=== PATIENT | male | born 1970 | race Caucasian/White ===

== ENCOUNTER 2023-04-27 07:49 | Inpatient (IN) ==
--- NOTE | 2023-03-22 14:48 | PAT Medication Instructions ---
Medication Instructions Date of Service March 22, 2023 Home Medications aspirin-acetaminophen (buffered) 250 mg-250 mg tablet 1 tab PO Q8H PRN lisinopril 10 mg tablet 10 mg PO QAM meloxicam 15 mg tablet 15 mg PO QAM rosuvastatin 10 mg tablet 10 mg PO QAM sumatriptan succinate 50 mg tablet (Imitrex) 50 mg PO UD PRN Continue as directed sumatriptan succinate 50 mg tablet (Imitrex) 50 mg PO UD PRN(if needed) ASK your surgeon for instructions meloxicam 15 mg tablet 15 mg PO QAM ASK your prescriber and surgeon aspirin-acetaminophen (buffered) 250 mg-250 mg tablet 1 tab PO Q8H PRN DO NOT take the morning of surgery lisinopril 10 mg tablet 10 mg PO QAM Take morning of surgery With a small sip of water, OTHERWISE NOTHING TO EAT OR DRINK AFTER MIDNIGHT: rosuvastatin 10 mg tablet 10 mg PO QAM Other Notes If you have any questions please call us at [phone] or [phone] or [phone] or [phone]
--- NOTE | 2023-03-30 12:10 | Anesthesiology Consultation ---
Date of Service March 30, 2023 Assessment & Plan (1) Encounter for pre-operative examination: - will request cardiology office re-fax EKG as report is not visible on current scan for potentially clearer copy. - Case discussed in detail with Dr. Raymond who advised patient is acceptable to proceed without additional evaluation or testing. - cardiology office visit 02/18/23: "...hypertension and palpitations...doing well since last visit from a cardiovascular perspective...no problems of chest pain chest heaviness...labile T waves and has previously shown bouts of inverted T waves followed by EKGs that are completely normal. I did offer to update stress testing but he does not feel he needs it at this time. Today's electrocardiogram did not show any of the T wave changes...palpitations have been infrequent and do not require any specific therapy at this time. Severe low back pain which is being treated with pain management and may actually need surgical intervention..." Chart Review Chart Review: Pending: Refer to Additional Notes / Consult section and Patient seen in Pre Admission Testing Teaching & Discussion Pre-Anesthesia Teaching/Discussion Notes: Instructed NPO after midnight before surgery, except medications with 15 cc of water. Medication instructions provided according to the PAT guidelines. History Surgery Operation Date: 04/27/23 07:45 Proposed Procedures p L4-S1 Decompression and Fusion, Possible L3-L4, Spinal Cord Monitoring - Elia Lewis DO Height/Weight Height: 5 ft 6 in Weight: 84.9 kg Allergies Allergy/AdvReac Type Severity Reaction Status Date / Time No Known Allergies Allergy Verified 03/22/23 08:20 Medications Home Medications Medication Instructions Recorded Confirmed Last Taken aspirin-acetaminophen (buffered) 1 tab PO Q8H PRN Pain 03/22/23 03/22/23 Unknown 250 mg-250 mg tablet lisinopril 10 mg tablet 10 mg PO QAM 03/22/23 03/22/23 Unknown meloxicam 15 mg tablet 15 mg PO QAM 03/22/23 03/22/23 Unknown rosuvastatin 10 mg tablet 10 mg PO QAM 03/22/23 03/22/23 Unknown sumatriptan succinate 50 mg tablet 50 mg PO UD PRN migraines 03/22/23 03/22/23 Unknown (Imitrex) Past Medical History Medical History Degenerative disc disease Epidermolysis bullosa mild form per patient, 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 Exercise / Class Metabolic Activity 1 > 8 Run/Swim/Ski/Tennis (denies chest discomfort or shortness of breath with 1 FOS; does 20+ mile bike rides) Past Family History Family History Other No family history of adverse response to anesthesia Past Surgical History Surgical History History of colonoscopy Hx of vasectomy S/P ACL repair right [place] teeth removed Past Anesthesia History No Hx of Anesthesia Complications and No Family Hx of Anesthesia Complications History of PONV No Hx of PONV and No Hx of Motion Sickness Social History Smoking Status: Never smoker Hx Alcohol Use: No substance use type: does not use Review of Systems Infrequent positional (on back) snoring, denies witnessed apneas. Patient denies chest pain, shortness of breath, dyspnea on exertion, fever, chills, cough, wheezing, or palpitations. Physical Exam Vital Signs Vitals BP 125/86 P 95 TEMP 98.1 SP02 95% on RA RESP 17 Physical Patient resting comfortably in chair in no acute distress, alert and oriented, responding appropriately throughout visit Full cervical extension range of motion without pain TMD 3.5 finger breadths Mallampati Score 2 Dentition: intact, denies chipped or loose teeth, caps/crowns, implants or bridges Lungs: normal respiratory effort. Good air movement, clear throughout to auscultation, no adventitious breath sounds Cardiac: regular rate and rhythm, no murmurs noted Carotid arteries: negative bruit bilat Lab Results Anesthesia Preop Results Results Anesthesia Widget: WBC 8.32 K/ul (4.8-10.8) 03/30/23 Hgb 16.6 g/dl (14.0-18.0) 03/30/23 Hct 48.4 % (42.0-52.0) 03/30/23 Plt 324 K/uL (130-400) 03/30/23 Na 139 mmol/L (136-145) 03/30/23 K 4.7 mmol/L (3.5-5.1) 03/30/23 Cl 104 mmol/L (98-107) 03/30/23 CO2 32 mmol/L (21-32) 03/30/23 BUN 18 mg/dl (6-23) 03/30/23 Creat 0.90 mg/dl (0.6-1.4) 03/30/23 Glucose Level 87 mg/dl (70-99(Fasting)) 03/30/23 PT 11.3 Seconds (9.0-12.0) 03/30/23 PTT 27.6 Seconds (21.0-31.0) 03/30/23 INR 1.0 (0.9-1.1) 03/30/23 Urine Color Yellow 03/30/23 Urine Appearance Clear (Clear) 03/30/23 Urine pH 5.5 (4.5-7.5) 03/30/23 Urine Specific [place] 1.018 (1.000-1.030) 03/30/23 Urine Protein Negative (Negative) 03/30/23 Urine Glucose (UA) Negative (Negative) 03/30/23 Urine Ketones Negative (Negative) 03/30/23 Urine Blood 1+ (Negative) H 03/30/23 Urine Nitrite Negative (Negative) 03/30/23 Urine Bilirubin Negative (Negative) 03/30/23 Urine Urobilinogen Negative (Negative) 03/30/23 Urine Leukocyte Esterase Negative (Negative) 03/30/23 Urine WBC (Auto) 0 /hpf (0-5) 03/30/23 Urine RBC (Auto) 0-4 /hpf (0-4) 03/30/23 Urine Hyaline Casts (Auto) 0 /lpf (0-5) 03/30/23 Urine Epithelial Cells (Auto) 0-5 /lpf (0-5) 03/30/23 Urine Bacteria (Auto) Negative (Negative) 03/30/23 Blood Type A Positive 03/30/23 Antibody Screen NEGATIVE 03/30/23 Testing Electrocardiogram Date: 02/18/23 Chest X-Ray Date: 03/30/23 No acute process Stress Test Date: 08/14/19 Provider notation: No sx, no isch, no echo changes
[~2023-04-27 07:49] MED LIST: ACETAMINOPHEN 500 MG TAB PO SCH; CeleBREX 200 MG CAP PO SCH; FAMOTIDINE/PF 20 MG/2 ML VIAL IV ONE; GABAPENTIN 900 MG DOSE PO SCH; LR 15ML/HR IV SCH; LR 60ML/HR IV SCH; ROCURONIUM BROMIDE 10 MG/ML 5 ML VIAL IV ONE; ceFAZolin 2000MG 2,000 MG/15 ML SYR IV SCH
[2023-04-27] MEDS ORDERED: fentaNYL citrate PF 100 MCG/2 ML VIAL ONE (08:38)
[2023-04-27] MEDS ORDERED: MIDAZOLAM HCL 1 MG/ML 2ML VIAL ONE (08:38)
[2023-04-27] MEDS ORDERED: LIDOCAINE 2% 2 ML VIAL/AMP(20MG/ML) INFIL ONE (08:39)
[2023-04-27] MEDS ORDERED: PROPOFOL IV EMULSION 10 MG/ML 20 ML VIAL IV ONE (08:39)
[2023-04-27] MEDS ORDERED: METOCLOPRAMIDE HCL INJ 5 MG/ML 2 ML VIAL ONE (08:39)
[2023-04-27] MEDS ORDERED: DEXAMETHASONE SOD INJ 4 MG/ML VIAL ONE (08:39)
[2023-04-27] MEDS ORDERED: ONDANSETRON INJ 2 MG/ML 2 ML VIAL ONE (08:39)
[2023-04-27] MEDS ORDERED: ATROPINE SULFATE 0.1 MG/ML 10ML SYR IV PRN (09:14)
[2023-04-27] MEDS ORDERED: PROMETHAZINE HCL 12.5 MG in SODIUM CHLORIDE 0.9% 50 ML IV PRN ×2 (09:14→14:45)
[2023-04-27] MEDS ORDERED: ONDANSETRON INJ 2 MG/ML 2 ML VIAL IV PRN ×2 (09:14→14:45)
[2023-04-27] MEDS ORDERED: LABETALOL HCL IV 5 MG/ML 20ML IV PRN (09:14)
--- NOTE | 2023-04-27 09:15 | History & Physical Bridge Note ---
Date of Service April 27, 2023 History & Physical Bridge Note I have examined the patient, reviewed the History & Physical and in the interval since the performance of the History & Physical I have noted the following changes of clinical significance: no changes noted
--- NOTE | 2023-04-27 09:16 | History & Physical Report ---
Date of Service April 27, 2023 Assessment & Plan (1) Neurogenic claudication due to lumbar spinal stenosis: Plan: L4-S1 decompression and fusion, possible L3-L4 History of Present Illness Chief Complaint: Back and leg pain Primary Care Provider: Carlos Mosley This is a 53-year-old male who presents with chronic persistent back and leg pain off and on since course of nonoperative care is here for surgical intervention. Allergies Allergy/AdvReac Type Severity Reaction Status Date / Time No Known Allergies Allergy Verified 04/27/23 08:15 Home Medications Medication Instructions Recorded Confirmed Type aspirin-acetaminophen (buffered) 1 tab PO Q8H PRN Pain 03/22/23 04/27/23 History 250 mg-250 mg tablet lisinopril 10 mg tablet 10 mg PO QAM 03/22/23 04/27/23 History meloxicam 15 mg tablet 15 mg PO QAM 03/22/23 04/27/23 History rosuvastatin 10 mg tablet (Crestor) 10 mg PO QAM 03/22/23 04/27/23 History sumatriptan succinate 50 mg tablet 50 mg PO UD PRN migraines 03/22/23 03/22/23 History (Imitrex) calcium carbonate 300 mg (750 mg) 2 tab PO PRN Acid Reflux 04/27/23 History chewable tablet (Tums Extra Strength Smoothies) Past Med/Surg History Medical History Degenerative disc disease Epidermolysis bullosa mild form per patient, 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 (gastroesophageal reflux disease) rare, stable per pt History of cardiac murmur as a child no murmurs reported on cardiology pre-op note Hyperlipidemia Hypertension controlled, stable per pt Migraine hx, rare, stable per pt Spinal stenosis Surgical History History of colonoscopy Hx of vasectomy S/P ACL repair right [place] teeth removed Family History Other No family history of adverse response to anesthesia Social History Smoking Status: Never smoker Second Hand Exposure: No; Hx Alcohol Use: No Preferred Language: Scottish Motor Expert Required: No Beliefs That Will Affect Care: None Current Living Situation: Family Feels Safe at Home: Yes Safety Concerns: Feels Safe At This Time Assistive Devices: Glasses Physical Exam Physical Exam: Patient is alert and oriented Heart regular rhythm lungs clear Results & Data Results & Data Vital Signs (Past 12 Hours) Vital Signs Temp Pulse Resp BP Pulse Ox O2 Del Method 04/27/23 08:19 36.7 C 105 H 18 136/105 H 98 Room Air
[2023-04-27] MEDS ORDERED: BUPIVACAINE/EPINEPHRINE 0.25% 1:200,000 30 ML VIAL ONE (09:30)
[2023-04-27] MEDS ORDERED: ceFAZolin 330 MG/ML 1 GM VIAL ONE (09:31)
[2023-04-27] MEDS ORDERED: HYDROmorphone INJ 2 MG/ML SYR/VIAL ONE (10:24)
[2023-04-27] MEDS ORDERED: ROCURONIUM BROMIDE 10 MG/ML 5 ML VIAL IV ONE (10:33)
[2023-04-27] MEDS ORDERED: FLOSEAL HEMOSTATIC MATRIX 10ML TOP ONE ×2 (10:47→11:58)
[2023-04-27] MEDS ORDERED: PHENYLEPHRINE 100MCG/ML 5ML SYR ONE (11:22)
[2023-04-27] MEDS ORDERED: KETOROLAC 30 MG/ML VIAL ONE (11:52)
[2023-04-27] MEDS ORDERED: SUGAMMADEX SODIUM 200 MG/2 ML VIAL IV ONE (11:52)
--- NOTE | 2023-04-27 12:17 | Operative Report ---
Post Operative Report Pre & Post Diagnosis Operation Date: 04/27/23 09:15 Pre-Op Diagnosis: Neurogenic claudication due to lumbar spinal stenosis Spondylolisthesis L4-5 Post-Op Diagnosis: Same I identified the patient and participated in the time-out.: Yes Procedure Operation Date: 04/27/23 09:15 Actual Procedures #1 lumbar decompression bilaterally facetectomies and foraminotomies L3-L4, L4-5 and L5-S1. #2 posterior spinal fusion L4-S1. #3 placed posterior instrumentation L4-S1. #4 interbody fusion L4-5 L5-S1. #5 placement spiral lumbar 26 mm cage at L4-5 and 12 x 26 mm cage at L5-S1 x2. #6 placement locally harvested morselized autograft and posterior gutters. #7 placement of I factor in the interbody space combined with V toss in the posterior lateral gutters. Surgeon Elia Lewis, Atomic Physics Professor Ailin Pate Estimated Blood Loss 300 Findings Consistent with Post-Op Diagnosis Specimens None Indications This is a 53-year-old male who presents above-mentioned diagnosis after failing course of nonoperative care is here for surgical invention. Description of Procedure Patient was met with identified informed consent obtained. Patient was then taken to the operative suite underwent patient placed in a prone position inject table top Eren frame. All bony promises well-padded eyes inspected to ensure no external precipice spinal. This point the lumbar spine was prepped and draped in a sterile fashion. Sharp dissection with the assistance of Bovie ca utery form down to and exposing the lamina transverse processes of L4-L5 and sacral ala bilaterally. From a caudal cephalad fashion complete laminectomy of L5 L4 partial and active L3 was performed including bilateral male facetectomies and foraminotomies addressing severe spinal stenosis. Pedicle screws were then placed in L4-L5 and S1 levels bilaterally with assistance of fluoroscopy and the properly sized naman placed. By way of a transforaminal approach and a right discectomy of L5-S1 was performed endplates curetted to subcortical bleeding bone and a 12 x 26 mm Spira cage filled with I factor tapped in position. Then proceeded to the left transforaminal region at L5-S1 completed the discectomy endplates curetted to subcortical bleeding bone and a second 12 x 26 mm Spira cage filled with I factor tapped in position. Then proceeded L4-L5 transforaminal region on the right complete discectomy performed endplates guarded to subcortical bleeding bone and 11 x 26 mm prior cage with I factor tapped in position. The rods were then compressed locked in final position bilaterally. The transverse processes of L4-5 and sacral ala burred to subcortical bleeding bone. I factor amount of the testing locally harvested morselized autograft was placed in the posterior lateral gutters. 15 round BRIAN drain inserted. The incision was then closed with 1 Vicryl to fascia 2-0 Vicryl subcutaneously and 4 Monocryl for fascial closure. Steri-Strips sterile dressings placed. Patient waken taken to PACU stable condition. Please note spinal cord monitoring was utilized at the procedure no changes noted. Lastly Ailin Pate was present at the entire surgeon while the patient positioning complex portion of the surgery and final skin closure. I attest to the content of the Intraoperative Record and any orders documented therein. Any exceptions are noted below.
--- NOTE | 2023-04-27 13:01 | Fluoroscopy Report ---
FL lumbar spine 2-3V CLINICAL HISTORY: L4-S1 DECOMPRESSION AND FUSION L3-L4 COMPARISON STUDY: None FLUOROSCOPY TIME: 22.9 seconds FLUOROSCOPY IMAGES: 2 EXPOSURE DOSE: 19.50 mGy FINDINGS: A radiopaque surgical sponge projects in the tissues anterior to the sacrum. Posterior inte rbody naman and screw fusion hardware with discectomy noted at L4-S1. Hardware appears intact. No acute fracture identified. Note that the images were submitted following completion of the surgery. IMPRESSION: Fluoroscopic assistance as above. ACT 112: Negative or not required by law. Electronically signed by: Minh Diane M.D. 04/27/2023 1:00 PM
[2023-04-27] MEDS: HYDROmorphone INJ 1 MG/ML SYRINGE IV PRN ×2 (13:10→13:42)
[2023-04-27] MEDS ORDERED: DO NOT ADMINISTER PNEUMOCOCCAL VACCINE PRN (14:45)
[2023-04-27] MEDS ORDERED: ALUMINUM/MAGNESIUM SUSP 30 ML UDC PO PRN (14:45)
[2023-04-27] MEDS ORDERED: NALOXONE HCL 0.4 MG/1 ML VIAL/CARP IV PRN (14:45)
[2023-04-27] MEDS ORDERED: ACETAMINOPHEN 500 MG TAB PO PRN (14:45)
[2023-04-27] MEDS ORDERED: SUMAtriptan succinate 50 MG TAB PO PRN (14:45)
[2023-04-27] MEDS ORDERED: LORazepam 0.5 MG TAB PO PRN (14:45)
[2023-04-27] MEDS ORDERED: DO NOT ADMINISTER FLU VACCINE PRN (14:45)
[2023-04-27] MEDS ORDERED: MAGNESIUM HYDROXIDE SUSP 30 ML UDC PO PRN (14:45)
[2023-04-27] MEDS ORDERED: SOD PHOSPHATE/SOD BIPHOSPHATE ENEMA 132 ML BTL PR PRN (14:45)
[2023-04-27] MEDS ORDERED: LORazepam 2 MG/1 ML VIAL IV PRN (14:45)
[2023-04-27] MEDS ORDERED: ONDANSETRON 4 MG OD TAB PO PRN (14:45)
[2023-04-27] MEDS ORDERED: traMADol HCL 50 MG TABLET PO PRN (14:45)
[2023-04-27] MEDS ORDERED: bisacodyL 10 MG SUPP PR PRN (14:45)
[2023-04-27] MEDS ORDERED: HYDROmorphone INJ 1 MG/ML SYRINGE IV PRN (14:45)
[2023-04-27] MEDS ORDERED: diphenhydrAMINE Capsule 25 MG CAP PO PRN (14:45)
[2023-04-27] MEDS ORDERED: ACETAMINOPHEN 1,000 MG/100 ML VIAL IV PRN (14:45)
[2023-04-27] MEDS ORDERED: hydrOXYzine HCl 25 MG TAB PO PRN (14:45)
[2023-04-27] MEDS ORDERED: LACTATED RINGER'S 1,000 ML IV SCH (14:45)
[2023-04-27] MEDS ORDERED: METOCLOPRAMIDE HCL INJ 5 MG/ML 2 ML VIAL IV PRN (14:45)
[2023-04-27] MEDS ORDERED: FAMOTIDINE 20 MG TAB PO PRN (14:45)
--- NOTE | 2023-04-27 14:56 | Anesthesiology Progress Note ---
Date of Service April 27, 2023 Anesthesia Post Procedure Vital Signs Vital Signs: Temp Pulse Resp BP BP Pulse Ox O2 Del Method 04/27/23 14:25 102 H 14 111/86 96 Nasal Cannula 04/27/23 14:15 36.4 C L 103 H 14 117/80 95 Nasal Cannula 04/27/23 14:05 99 H 14 133/86 95 Nasal Cannula 04/27/23 13:55 95 H 14 117/83 96 Nasal Cannula 04/27/23 13:45 36.4 C L 93 H 14 116/77 96 Nasal Cannula 04/27/23 13:35 87 14 123/81 99 Nasal Cannula 04/27/23 13:25 103 H 14 119/84 96 Nasal Cannula 04/27/23 13:15 100 H 14 126/80 96 Nasal Cannula 04/27/23 13:05 93 H 14 140/96 96 Nasal Cannula 04/27/23 12:55 96 H 14 144/92 H 98 Oxymask 04/27/23 12:45 80 14 122/84 98 Oxymask 04/27/23 12:37 36.3 C L 79 14 119/76 98 Oxymask 04/27/23 08:19 36.7 C 105 H 18 136/105 H 98 Room Air O2 Flow Rate 04/27/23 14:25 2 04/27/23 14:15 2 04/27/23 14:05 2 04/27/23 13:55 2 04/27/23 13:45 2 04/27/23 13:35 2 04/27/23 13:25 2 04/27/23 13:15 2 04/27/23 13:05 2 04/27/23 12:55 6 04/27/23 12:45 6 04/27/23 12:37 6 04/27/23 08:19 Pain Intensity Lower Back: Pain Intensity: 3 Transfer of Care Handoff Completed per policy Notes Mental Status: alert / awake / arousable Patient Amnestic to Procedure: Yes Nausea / Vomiting: adequately controlled Pain: adequately controlled Airway Patency, RR, SpO2: stable & adequate BP & HR: stable & adequate Hydration State: stable & adequate Anesthetic Complications: no major complications apparent
[2023-04-27] MEDS: KETOROLAC 30 MG/ML VIAL IV SCH ×2 (16:48→21:05)
[2023-04-27] MEDS: ceFAZolin 2000MG 2,000 MG/15 ML SYR IV SCH (18:28)
[2023-04-27] MEDS: DOCUSATE SODIUM/SENNA 50/8.6MG TAB PO SCH (20:21)
[2023-04-27 21:30] LABS: Albumin Globulin Ratio 1.7 (0.9-2); Albumin Level 3.8 gm/dl (3.4-5.0); BUN Creatinine Ratio 15.5 (10-20); Bilirubin,Total 0.4 mg/dl (0.2-1.0); Calcium 8.7 mg/dl (8.6-10.3); Creatinine Clr Calc Pharmacy 62.1 ml/min; Est GFR (African American) 65.4 ml/min; Est GFR (Non-African American) 56.4 ml/min; Globulin 2.3 gm/dl (2.5-4.0); Potassium 4.6 mmol/L (3.5-5.1); Total Protein 6.1 gm/dl (6.0-8.3)
[2023-04-27 21:36] LABS: Troponin I High Sensitivity 2.8 pg/ml (0-20)
[2023-04-27 21:40] LABS: Hematocrit (blood only) 42.2 % (42.0-52.0); Hemoglobin 14.1 g/dl (14.0-18.0); Mean Corpuscular Hemoglobin 30.2 pg (25.0-34.0); Mean Corpuscular Hgb Conc 33.4 g/dL (32.0-36.0); Mean Corpuscular Volume 90.4 fL (80.0-100.0); Mean Platelet Volume 9.9 fL (9.4-12.4); Platelet Count 315 K/uL (130-400); RDW Coefficient of Variation 12.1 % (11.5-14.5); RDW Standard Deviation 39.8 fL (36.4-46.3); Red Blood Count 4.67 M/uL (4.70-6.10); White Blood Count 15.16 K/ul (4.8-10.8)
[2023-04-27 22:11] LABS: Basophils # (auto) 0.01 K/uL (0.00-0.20); Basophils % (auto) 0.1 %; Immature Granulocytes # (auto) 0.07 K/uL (0.01-0.20); Immature Granulocytes % (auto) 0.5 %; Lymphocytes # (auto) 0.58 K/uL (1.20-3.40); Lymphocytes % (auto) 3.8 %; Monocytes # (auto) 0.71 K/uL (0.11-0.59); Monocytes % (auto) 4.7 %; Neutrophils # (auto) 13.79 K/uL (1.40-6.50); Neutrophils % (auto) 90.9 %
--- NOTE | 2023-04-27 22:13 | Hospitalist Consultation ---
Date of Consultation April 27, 2023 Assessment & Plan (1) Status post lumbar spine surgery for decompression of spinal cord: 53 M with PMH hypertension, hyperlipidemia, migraines, GERD, and DDD, now s/p lumbar decompression surgery. DDD/s/p lumbar decompression surgery -Tolerated operative procedure well without complication. -Pain adequately controlled at present. * Continue pain control regimen: Scheduled IV Toradol 30 mg every 6 hours x4 total doses, Tylenol 1000 mg every 8 hours as needed, as needed IV Dilaudid for breakthrough pain. * Continue IV cefazolin 2 g * Trend a.m. labs. Replete electrolytes as indicated. Hypertension -On lisinopril 10 mg at home * Continue Hyperlipidemia -On rosuvastatin 10 mg at home. * Continue GERD * Continue famotidine 20 mg as needed twice daily Migraine -On sumatriptan 50 mg as needed at home. * Continue Code: Full code Dispo: Med-Surg FEN/GI: LR @maintenance rate DVT Prophylaxis: None (2) Neurogenic claudication due to lumbar spinal stenosis: (3) Hypertension: (4) Hyperlipidemia: (5) GERD (gastroesophageal reflux disease): (6) Migraine: Supervising Physician Co-Signing Physician Notes Attending addendum: I have supervised the medical residents activities, and agree with the H&P unless as otherwise noted. Assessment and Plan: Status post lumbar decompression surgery- Seen postoperatively is medically stable Pain regimen per primary service Antibiotics per primary service Hypertension- Continue lisinopril 10 mg daily for now, recheck laboratories BMP and magnesium level in a.m. Hyperlipidemia- Continue rosuvastatin 10 mg daily GERD- Continue famotidine 20 mg p.o. twice daily Migraine- Continue sumatriptan and 50 mg as needed per protocol History of Present Illness Reason for Consultation: Postoperative medical management Attending Physician: Elia Leiws, DO History of Present Illness Fernando is a 54-year-old man with a history of hypertension, hyperlipidemia, and degenerative disc disease, now s/p L4-S1 decompression and fusion. Hospital service was consulted for med management. Prior to bedside examination, patient had attempted to ambulate to the bathroom on his own. He subsequently had a syncopal episode, for which a code alexx was called. BP was 95/62. Gave 0.5 L normal saline bolus pressure subsequently improved to 113/81. Patient now denies dizziness, headache, vision changes, or lethargy. ROS + back pain only. Allergies Allergy/AdvReac Type Severity Reaction Status Date / Time No Known Allergies Allergy Verified 04/27/23 08:15 Home Medications Medication Instructions Recorded Confirmed Type aspirin-acetaminophen (buffered) 1 tab PO Q8H PRN Pain 03/22/23 04/27/23 History 250 mg-250 mg tablet lisinopril 10 mg tablet 10 mg PO QAM 03/22/23 04/27/23 History meloxicam 15 mg tablet 15 mg PO QAM 03/22/23 04/27/23 History rosuvastatin 10 mg tablet (Crestor) 10 mg PO QAM 03/22/23 04/27/23 History sumatriptan succinate 50 mg tablet 50 mg PO UD PRN migraines 03/22/23 03/22/23 History (Imitrex) calcium carbonate 300 mg (750 mg) 2 tab PO PRN Acid Reflux 04/27/23 History chewable tablet (Tums Extra Strength Smoothies) oxycodone 5 mg tablet 5 mg PO Q6H PRN pain #30 tabs 04/27/23 Rx tramadol 50 mg tablet 50 mg PO Q6H PRN pain, moderate 04/27/23 Rx #30 tabs Patient History Medical History (Updated 04/30/23 @ 00:12 by David Mix) GERD (gastroesophageal reflux disease) rare, stable per pt Epidermolysis bullosa mild form per patient, 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) Spinal stenosis Degenerative disc disease Migraine hx, rare, stable per pt History of cardiac murmur as a child no murmurs reported on cardiology pre-op note Hypertension controlled, stable per pt Hyperlipidemia Surgical History (Updated 04/27/23 @ 22:18 by Clark Farris MD) S/P ACL repair right Hx of vasectomy History of colonoscopy [place] teeth removed Family History Other No family history of adverse response to anesthesia Social History Smoking Status: Never smoker Second Hand Exposure: No; Hx Alcohol Use: No Preferred Language: Spanish Communication Ability: Effective Access Consultant Required: No Beliefs That Will Affect Care: None Current Living Situation: Family Feels Safe at Home: Yes Assistive Devices: Raised Toilet Seat Review of Systems Review of Systems: All systems reviewed & are unremarkable except as noted in HPI & below Physical Exam Physical Exam: General: No acute distress Respiratory: Normal respiratory effort, CTABL. Cardiovascular: RRR without murmurs, gallops, or rubs. No pedal edema. GI: Soft abdomen with normal bowel sounds heard on auscultation. Nontender x4 quadrants Neuro: Alert and oriented x3. Results & Data Results & Data Vital Signs (Past 12 Hours) Vital Signs Temp Pulse Pulse Pulse Resp BP Pulse Ox 04/27/23 19:51 36.7 C 106 H 16 113/81 94 04/27/23 17:28 36.4 C L 111 H 16 119/80 93 04/27/23 16:30 36.6 C 104 H 16 111/76 95 04/27/23 15:30 36.4 C L 94 H 14 109/72 96 04/27/23 15:00 36.3 C L 95 H 16 105/70 97 04/27/23 14:25 102 H 14 111/86 96 04/27/23 14:15 36.4 C L 103 H 14 117/80 95 04/27/23 14:05 99 H 14 133/86 95 04/27/23 13:55 95 H 14 117/83 96 04/27/23 13:45 36.4 C L 93 H 14 116/77 96 04/27/23 13:35 87 14 123/81 99 04/27/23 13:25 103 H 14 119/84 96 04/27/23 13:15 100 H 14 126/80 96 04/27/23 13:05 93 H 14 140/96 96 04/27/23 12:55 96 H 14 144/92 H 98 04/27/23 12:45 80 14 122/84 98 04/27/23 12:37 36.3 C L 79 14 119/76 98 O2 Del Method O2 Flow Rate 04/27/23 19:51 Room Air 04/27/23 17:28 Room Air 04/27/23 16:30 Nasal Cannula 2 04/27/23 15:30 Nasal Cannula 2 04/27/23 15:00 Nasal Cannula 2 04/27/23 14:25 Nasal Cannula 2 04/27/23 14:15 Nasal Cannula 2 04/27/23 14:05 Nasal Cannula 2 04/27/23 13:55 Nasal Cannula 2 04/27/23 13:45 Nasal Cannula 2 04/27/23 13:35 Nasal Cannula 2 04/27/23 13:25 Nasal Cannula 2 04/27/23 13:15 Nasal Cannula 2 04/27/23 13:05 Nasal Cannula 2 04/27/23 12:55 Oxymask 6 04/27/23 12:45 Oxymask 6 04/27/23 12:37 Oxymask 6
[2023-04-27] MEDS: HYDROmorphone INJ 0.5 MG/0.5 ML SYR IV PRN (22:40)
[2023-04-28] MEDS: ceFAZolin 2000MG 2,000 MG/15 ML SYR IV SCH (01:33)
[2023-04-28] MEDS: KETOROLAC 30 MG/ML VIAL IV SCH ×2 (03:42→11:16)
[2023-04-28] MEDS: POLYETHYLENE (MIRALAX) 17 GM PACK PO SCH ×4 (05:15→23:48)
[2023-04-28] MEDS: HYDROmorphone INJ 0.5 MG/0.5 ML SYR IV PRN ×2 (05:15→09:47)
[2023-04-28] MEDS: ROSUVASTATIN CALCIUM 10 MG TAB PO SCH (08:14)
[2023-04-28] MEDS: dexAMETHasone 6 MG in SYRINGE 0 ML IV SCH (08:14)
[2023-04-28] MEDS: lisinopril 10 MG TAB PO SCH (08:14)
[2023-04-28 08:39] LABS: Basophils # (auto) 0.02 K/uL (0.00-0.20); Basophils % (auto) 0.1 %; Eosinophils # (auto) 0.01 K/uL (0.00-0.50); Eosinophils % (auto) 0.1 %; Hematocrit (blood only) 38.7 % (42.0-52.0); Hemoglobin 12.9 g/dl (14.0-18.0); Immature Granulocytes # (auto) 0.11 K/uL (0.01-0.20); Immature Granulocytes % (auto) 0.7 %; Lymphocytes # (auto) 1.51 K/uL (1.20-3.40); Lymphocytes % (auto) 9.9 %; Mean Corpuscular Hemoglobin 30.3 pg (25.0-34.0); Mean Corpuscular Hgb Conc 33.3 g/dL (32.0-36.0); Mean Corpuscular Volume 90.8 fL (80.0-100.0); Mean Platelet Volume 9.4 fL (9.4-12.4); Monocytes # (auto) 1.17 K/uL (0.11-0.59); Monocytes % (auto) 7.6 %; Neutrophils % (auto) 81.6 %; Platelet Count 268 K/uL (130-400); RDW Coefficient of Variation 12.1 % (11.5-14.5); RDW Standard Deviation 40.5 fL (36.4-46.3); Red Blood Count 4.26 M/uL (4.70-6.10); White Blood Count 15.32 K/ul (4.8-10.8)
[2023-04-28 08:55] LABS: BUN Creatinine Ratio 22.5 (10-20); Calcium 8.2 mg/dl (8.6-10.3); Creatinine Clr Calc Pharmacy 86.5 ml/min; Est GFR (African American) 97.5 ml/min; Est GFR (Non-African American) 84.1 ml/min
--- NOTE | 2023-04-28 09:37 | Hospitalist Progress Note ---
Date of Service April 28, 2023 Assessment & Plan (1) Status post lumbar spine surgery for decompression of spinal cord: Plan: 53 M with PMH hypertension, hyperlipidemia, migraines, GERD, and DDD, now s/p lumbar decompression surgery for neurogenic claudication DDD/s/p lumbar decompression surgery 04/27/23 -Pain controlled * Continue pain control regimen: Scheduled IV Toradol 30 mg every 6 hours x4 total doses, Tylenol 1000 mg every 8 hours as needed, as needed IV Dilaudid for breakthrough pain. * Continue IV cefazolin 2 g * leukocytosis from periopertive steroids (2) Hypertension: Plan: Hypertension -On lisinopril 10 mg at home, jacqueline contributed to post op orthostatic bp drops (3) Hyperlipidemia: Plan: Hyperlipidemia -On rosuvastatin 10 mg at home. (4) GERD (gastroesophageal reflux disease): Plan: Famotidine bid (5) Migraine: Plan: On sumatriptan 50 mg as needed at home Plan Code: Full code DVT Prophylaxis: scd Admission and Anticipated Discharge Date Admission Date: April 27, 2023 Subjective pt was with some lightheaded ness 04/26/23 today feels back to his baseline Physical Exam Physical Exam: cardiac exam is regular lungs are clear Results & Data Results & Data Vital Signs (Past 12 Hours) Vital Signs Temp Pulse Resp BP Pulse Ox O2 Del Method 04/28/23 07:28 98.1 F 91 H 16 113/77 99 Room Air 04/28/23 04:00 97.9 F 80 16 112/78 96 Room Air 04/27/23 23:00 97.9 F 101 H 16 109/74 93 Room Air Laboratory Results reviewed cbc, reviewed chemistry PG Care Time/CCT Total # of Minutes Spent Total Time Spent with Patient: Total time spent is greater than 50% in coordination of care (as documented) at patient's floor/unit and/or counseling patient: Coding Level of Care Code 24067 SUB INP/OBS CARE 2/35MIN Diagnoses Status post lumbar spine surgery for decompression of spinal cord Z98.890 Hypertension I10 Hyperlipidemia E78.5 GERD (gastroesophageal reflux disease) K21.9 Migraine G43.909
--- NOTE | 2023-04-28 10:38 | Orthopedic Progress Note ---
Date of Service April 28, 2023 Assessment & Plan (1) Neurogenic claudication due to lumbar spinal stenosis: Plan: Fernando is postoperative day 1 status post L4-S1 decompression and fusion. We will start physical therapy and ambulation today. Continue with pain control. DVT prophylaxis is in the form of teds and SCDs. Maintain BRIAN drain. Anticipate discharge home over the weekend Admission and Anticipated Discharge Date Admission Date: April 27, 2023 Subjective Fernando is postoperative day 1 status post L4-S1 decompression and instrumented fusion. Had a vasovagal episode last evening. He has not been out of bed since. BRIAN drain output last shift was 125 cc. Leg symptoms improved. Back pain is controlled. H&H this morning are 12.9 and 38.7 respectively Review of Systems Review of Systems: All systems reviewed & are unremarkable except as noted in HPI & below Physical Exam Physical Exam: He is sitting up in bed in no acute distress Alert and oriented x3 Vital signs are stable Lumbar dressing is clean dry intact with a functioning BRIAN drain Strength is intact bilateral lower extremities Results & Data Vital Signs (Past 12 Hours) Vital Signs Temp Pulse Resp BP Pulse Ox O2 Del Method 04/28/23 07:28 36.7 C 91 H 16 113/77 99 Room Air 04/28/23 04:00 36.6 C 80 16 112/78 96 Room Air 04/27/23 23:00 36.6 C 101 H 16 109/74 93 Room Air
--- NOTE | 2023-04-28 12:35 | Electrocardiogram Report ---
Test Reason : Blood Pressure : / mmHG Vent. Rate : 098 BPM Atrial Rate : 098 BPM P-R Int : 174 ms QRS Dur : 066 ms QT Int : 344 ms P-R-T Axes : 045 093 -02 degrees QTc Int : 439 ms Normal sinus rhythm Rightward axis Nonspecific T wave abnormality Abnormal ECG No previous ECGs available Confirmed by Sean Sanchez ([id number]) on 04/28/2023 12:34:31 PM Referred By: Elia Lewis Confirmed By:Sean Sanchez
[2023-04-28] MEDS: DOCUSATE SODIUM/SENNA 50/8.6MG TAB PO SCH (19:57)
[2023-04-29] MEDS: POLYETHYLENE (MIRALAX) 17 GM PACK PO SCH (05:44)
[2023-04-29] MEDS: oxyCODONE HCL IR 5 MG TAB (IMMEDIATE RELEASE) PO PRN ×3 (08:08→21:43)
[2023-04-29] MEDS: ROSUVASTATIN CALCIUM 10 MG TAB PO SCH (08:09)
[2023-04-29] MEDS: lisinopril 10 MG TAB PO SCH (08:09)
[2023-04-29] MEDS: dexAMETHasone 6 MG in SYRINGE 0 ML IV SCH (08:09)
[2023-04-29 10:54] LABS: Hemoglobin 13.1 g/dl (14.0-18.0); Mean Corpuscular Hemoglobin 30.4 pg (25.0-34.0); Mean Corpuscular Hgb Conc 34.5 g/dL (32.0-36.0); Mean Corpuscular Volume 88.2 fL (80.0-100.0); Mean Platelet Volume 9.7 fL (9.4-12.4); Platelet Count 309 K/uL (130-400); RDW Coefficient of Variation 12.2 % (11.5-14.5); RDW Standard Deviation 39.8 fL (36.4-46.3); Red Blood Count 4.31 M/uL (4.70-6.10); White Blood Count 16.81 K/ul (4.8-10.8)
[2023-04-29 11:00] LABS: BUN Creatinine Ratio 22.6 (10-20); Calcium 8.9 mg/dl (8.6-10.3); Creatinine Clr Calc Pharmacy 94.9 ml/min; Est GFR (Non-African American) 94.1 ml/min; Potassium 4.5 mmol/L (3.5-5.1)
--- NOTE | 2023-04-29 13:30 | Orthopedic Progress Note ---
Date of Service April 29, 2023 Assessment & Plan (1) Neurogenic claudication due to lumbar spinal stenosis: Plan: At this time continue physical therapy monitor his BRIAN output anticipate discharge tomorrow. Admission and Anticipated Discharge Date Admission Date: April 27, 2023 Subjective Patient's back pain is controlled leg symptoms markedly improved Physical Exam Physical Exam: Patient is good strength testing. Peers comfortable. Results & Data Vital Signs (Past 12 Hours) Vital Signs Temp Pulse Resp BP Pulse Ox O2 Del Method 04/29/23 07:24 36.6 C 92 H 14 105/70 96 Room Air
--- NOTE | 2023-04-29 16:07 | Hospitalist Progress Note ---
Date of Service April 29, 2023 Assessment & Plan (1) Status post lumbar spine surgery for decompression of spinal cord: Plan: 53 M with PMH hypertension, hyperlipidemia, migraines, GERD, and DDD, now s/p lumbar decompression surgery for neurogenic claudication DDD/s/p lumbar decompression surgery 04/27/23 -Pain controlled * Continue pain control regimen:Tylenol 1000 mg every 8 hours as needed, only occasional oxycodone and as needed IV Dilaudid for breakthrough pain. * leukocytosis from periopertive steroids (2) Hypertension: Plan: Hypertension -On lisinopril 10 mg at home, ummley contributed to post op orthostatic bp drops (3) Hyperlipidemia: Plan: Hyperlipidemia -On rosuvastatin 10 mg at home. (4) GERD (gastroesophageal reflux disease): Plan: Famotidine bid (5) Migraine: Plan: On sumatriptan 50 mg as needed at home Plan Code: Full code DVT Prophylaxis: scd Admission and Anticipated Discharge Date Admission Date: April 27, 2023 Subjective pt doing well no further lightheaded issues anticipate dc 04/30 Physical Exam Physical Exam: up and alert walking no radicular symptoms Results & Data Results & Data Vital Signs (Past 12 Hours) Vital Signs Temp Pulse Resp BP Pulse Ox O2 Del Method 04/29/23 15:19 97.9 F 87 16 99/64 L 94 Room Air 04/29/23 07:24 97.9 F 92 H 14 105/70 96 Room Air Laboratory Results reviewed CBC reviewed chemistry PG Care Time/CCT Total # of Minutes Spent Total Time Spent with Patient: Total time spent is greater than 50% in coordination of care (as documented) at patient's floor/unit and/or counseling patient: Coding Level of Care Code 06195 SUB INP/OBS CARE /25MIN Diagnoses Status post lumbar spine surgery for decompression of spinal cord Z98.890 Hypertension I10 Hyperlipidemia E78.5 GERD (gastroesophageal reflux disease) K21.9 Migraine G43.909
[2023-04-29] MEDS: DOCUSATE SODIUM/SENNA 50/8.6MG TAB PO SCH (20:54)
[2023-04-30] MEDS: lisinopril 10 MG TAB PO SCH (07:27)
[2023-04-30] MEDS: ROSUVASTATIN CALCIUM 10 MG TAB PO SCH (07:27)
[2023-04-30] MEDS: oxyCODONE HCL IR 5 MG TAB (IMMEDIATE RELEASE) PO PRN ×2 (07:27→12:10)
[2023-04-30] MEDS: dexAMETHasone 6 MG in SYRINGE 0 ML IV SCH (07:28)
[2023-04-30 08:45] LABS: BUN Creatinine Ratio 22.2 (10-20); Calcium 8.7 mg/dl (8.6-10.3); Creatinine Clr Calc Pharmacy 108.9 ml/min; Est GFR (African American) 118.4 ml/min; Est GFR (Non-African American) 102.2 ml/min
[2023-04-30 08:49] LABS: Hematocrit (blood only) 34.3 % (42.0-52.0); Hemoglobin 11.6 g/dl (14.0-18.0); Mean Corpuscular Hemoglobin 30.1 pg (25.0-34.0); Mean Corpuscular Hgb Conc 33.8 g/dL (32.0-36.0); Mean Corpuscular Volume 89.1 fL (80.0-100.0); Mean Platelet Volume 9.8 fL (9.4-12.4); Platelet Count 267 K/uL (130-400); RDW Coefficient of Variation 12.3 % (11.5-14.5); RDW Standard Deviation 40.4 fL (36.4-46.3); Red Blood Count 3.85 M/uL (4.70-6.10); White Blood Count 13.59 K/ul (4.8-10.8)
--- NOTE | 2023-04-30 09:05 | Discharge Summary ---
Date of Service April 30, 2023 Admission HPI Per Admitting Provider This is a 53-year-old male who presents with chronic persistent back and leg pain off and on since course of nonoperative care is here for surgical intervention. Principal Diagnosis Lumbar spinal stenosis with neurogenic medication Discharge Data Allergies Allergy/AdvReac Type Severity Reaction Status Date / Time No Known Allergies Allergy Verified 04/27/23 08:15 Consultations 04/27/23 14:45 Consult Hospitalist Routine Procedures Performed Operation Date: 04/27/23 09:15 Actual Procedures p L4-S1 Decompression and Fusion, Spinal Cord Monitoring - Elia Lewis DO Ordered Studies 04/27/23 09:15 FL lumbar spine 2-3V Routine Hospital Course (1) Neurogenic claudication due to lumbar spinal stenosis: Patient with lumbar decompression fusion tolerated this well was taken to the orthopedic floor postoperatively. He progressed appropriate throughout his hospital stay BRIAN drain decreasing appropriate. EXTR strength testing. Pain controlled. Simply discharged home. Discharge orders instructions found in chart for further review. Total Time Total Time Spent Total Time Spent (In Minutes): 29 Discharge Plan Discharge Items Patient Disposition: Home - Self-Care Reason For Visit: Thoracolumbar and Lumbosacral Intertebral Disc Dis Discharge Diagnosis: Lumbar spinal stenosis with spondylolisthesis and neurogenic claudication Activity: As commented below Non-emergency contact: Primary Care Provider Call non-emergency contact if: you have any medication questions Follow-up/Referrals: Carlos Mosley M.D. [Primary Care Provider] - Diet: Regular Addtl Attending Provider Instructions: ACTIVITY RECOMMENDATIONS: SELF CARE INSTRUCTIONS AFTER THORACIC/LUMBAR FUSIONS 1. You may walk to your tolerance. It is good exercise for your legs and back. Expect some back and intermittent leg aches and pains. 2. You may perform "counter-top" level activities (make a sandwich, minerva with a project, etc.). 3. No bending or lifting of more than 10 pounds or back twisting of any nature (roll like a log when turning in bed). 4. You may ride in a car for 20-30 minutes at a time. No driving until after your first visit with your doctor. 5. Frequent changes of position and restricting sitting to 30 minutes at a time will help limit the amount of back spasms and stiffness you may experience. 6. You may discontinue the use of ambulatory aids (cane, crutches, etc.) once your strength and confidence allow. 7. You may marketing program manager the shower and let water strike your incision when you arrive home at least once daily. Do not take a tub bath, sit in a hot tub or go into a swimming pool until after your first recheck in the office. SPECIAL CARE INSTRUCTIONS: VERY IMPORTANT TO READ AND REVIEW A. Your surgical incision has been closed with a cosmetic suture under the skin that will dissolve in about 6 weeks. In 14 days, you can use a pair of clean scissors and cut the suture that is left outside of the skin at the ends of your incision. 1. The small skin tapes can be removed 7 days after surgery if they have not fallen off by that point. 2. You may keep the wound open to air as much as possible to promote healing after post-op day number 5 unless told otherwise by your doctor. 3. If you think the wound looks like it is becoming infected (redness or worsening drainage) and/or you are experiencing fever, chill or worsening back pain and muscle spasms, contact the office so that we may evaluate you as soon as possible. B. Complications are uncommon, but please contact us if you have any signs or symptoms of: 1. wound infection (fever higher than 102.5 degrees F, redness, separation of wound, drainage, or increasing pain from the incision) 2. blood clots in legs (pain, swelling, redness and warmth in legs) 3. urinary tract infection (fever higher than 102.5 degrees F, burning upon urination or increased frequency of urination) 4. nerve problems (inability to walk on your toes or heels, numbness, loss of bowel or bladder control) 5. any other symptoms that concern you C. Please call the office at if you have any concerns or questions about your operation or recovery. D. No smoking! Smoking drastically decreases the chance of a solid fusion. E. Do not take any anti-inflammatory medications (Indocin, Advil, Motrin, Aspirin, Naprosyn, etc.) as these may inhibit the chance of a solid fusion. Tylenol is okay to take for pain. MANAGING PAIN AFTER SPINAL SURGERY 1. Narcotic medication is intended for short-term use and will be provided for surgical pain. Surgical pain usually lasts for a period of 4-6 weeks. Narcotic medication includes Percocet, Vicodin, Darvocet, Tylenol #3 or Lortab. 2. Longer-term pain is more appropriately treated with non-narcotic medication such as Tylenol ES. 3. Muscle spasm is not appropriately treated with narcotics. Muscle relaxers such as Soma, Flexeril or Skelaxin can be used along with Tylenol ES. 4. Remember that we all live with some "aches and pains". This is not unusual or uncommon after an injury or as we get older. a. Back pain is expected and may include muscle spasms for 4 to 6 weeks after surgery. The pain should gradually improve. If the pain worsens for no apparent reason, please contact the office. b. Intermittent leg pain may also be experienced and should not be concerned about unless it worsens for no apparent reason. If so, please contact the office. 5. We will provide appropriate medication within the normal guidelines of their prescribed use. We will also be very cautious and aware of potential abuse and extended duration of patients' medication needs. a. Pain medications are for your comfort and to assist with sleep and rest so that the tissue can heal. They are not provided in order to return to normal activity and should not be used through the day. To do so or worsening pain at night can result from ongoing tissue damage and development of tolerance to the prescribed medicine. 6. Please allow 2-3 days to process refills. Prescriptions will not be mailed but must be picked up at the office. FOLLOW UP VISIT: Keep your scheduled follow-up appointment. Any questions, please call the office at . Pending Studies at Discharge: No Stand-Alone Forms: My [facility], Smoking Cessation Medications and AR Order Prescriptions: New tramadol 50 mg tablet 50 mg PO Q6H PRN (Reason: pain, moderate) Qty: 30 0RF oxycodone 5 mg tablet 5 mg PO Q6H PRN (Reason: pain) Qty: 30 0RF Continued meloxicam 15 mg Tablet 15 mg PO QAM sumatriptan succinate [Imitrex] 50 mg Tablet 50 mg PO UD PRN (Reason: migraines) Rx Instructions: take 1 tab at onset of headache; if no relief may repeat 1 tab after at least 2 hrs; max = 4 tabs/24 hr lisinopril 10 mg Tablet 10 mg PO QAM rosuvastatin [Crestor] 10 mg Tablet 10 mg PO QAM aspirin-acetaminophen (buffer) 250-250 mg Tablet 1 tab PO Q8H PRN (Reason: Pain) Patient Comments: usually takes 1 every morning calcium carbonate [Tums Extra Strength Smoothies] 300 mg (750 mg) Tablet,Chewable 2 tab PO PRN (Reason: Acid Reflux) Discharge Orders: Discharge Order (Routine); Ordered 04/30/23 Ordered By: Elia Lewis Admission Data Admit Date/Time: 04/27/23 12:21 Attending Provider: Elia Lewis Admit Provider: Elia Lewis Primary Care Provider: Carlos Mosley Other Providers: Bob Barraza
--- NOTE | 2023-04-30 19:20 | Billing Data ---
Date of Service April 30, 2023 Coding Level of Care Code 33356 INT INP/OBS CARE
--- NOTE | 2023-04-30 19:20 | Billing Data ---
Date of Service April 30, 2023 Coding Level of Care Code 29860 INT INP/OBS CARE
== END 2023-04-30 13:18 | disposition home or self-care (01) | DRG 455 ==
LOC: ASU 07:49 → 3W 12:21